=== PATIENT | female | born 1950 | race Caucasian/White ===

== ENCOUNTER 2022-12-06 10:14 | Outpatient (CLI) | payer MEDICARE, SELFPAY ==
--- NOTE | 2022-12-06 10:44 | ECG_ITS ---
Measurements Intervals [place] Rate: 60 P: 28 MS: 192 QRS: 51 QRSD: 111 T: 76 QT: 437 QTc: 440 Interpretive Statements SINUS RHYTHM MODERATE INTRAVENTRICULAR CONDUCTION DELAY [110+ ms QRS DURATION] NONSPECIFIC T-WAVE ABNORMALITY ABNORMAL ECG NO PREVIOUS ECG AVAILABLE FOR COMPARISON Electronically Signed On 12-06-2022 11:13:33 CDT by Butch Hinds M.D.
[2022-12-06 10:47] LABS: Basophils Absolute Auto 0.03 K/mm3 (0.00-0.10); Basophils Percent Auto 0.4 % (0.0-1.0); Eosinophils Absolute Auto 0.11 K/mm3 (0.02-0.50); Eosinophils Percent Auto 1.4 % (1.0-6.0); Hematocrit 44.3 % (35.0-42.0); Hemoglobin 14.3 g/dL (11.7-13.8); Immature Granulocyte Absolute 0.04 K/mm3 (0.00-0.00); Immature Granulocyte Percent A 0.5 % (0.0-0.0); Lymphocytes Absolute Auto 1.49 K/mm3 (1.10-4.50); Lymphocytes Percent Auto 18.6 % (18.0-42.0); Mean Corpuscular HGB Conc 32.3 g/dL (32.0-36.0); Mean Corpuscular Hemoglobin 30.6 pg (27.0-31.0); Mean Corpuscular Volume 94.9 fL (78.0-102.0); Mean Platelet Volume 10.9 fl (9.2-11.8); Monocytes Absolute Auto 0.35 K/mm3 (0.10-0.90); Monocytes Percent Auto 4.4 % (2.0-11.0); Neutrophils Percent Auto 74.7 % (50.0-70.0); Platelet Count Result 251 K/mm3 (150-420); Red Blood Count 4.67 M/mm3 (4.20-5.40); Red Cell Distribution Width 12.9 % (11.6-14.4)
[2022-12-06 10:48] LABS: Appearance Urine Clear (Clear); Bilirubin Urine Negative (Negative); Blood Urine Negative (Negative); Color Urine Yellow (Yellow); Glucose Urine UA Negative (Negative); Ketones Urine Negative (Negative); Leukocyte Esterase Ur Negative LEU/UL (Negative); Nitrate Urine Negative (Negative); Protein Urine Trace (Negative); Specific Grav Ur >= 1.030 (1.010-1.020); Urobilinogen Urine 0.2 mg/dL (0.2-1.0)
[2022-12-06 10:53] LABS: Add Urine Microscopic? YES; Bacteria Urine Trace /hpf; RBC Urine None seen /hpf (0-2); Squamous Epithelial Cell Urine Moderate /hpf (Few); WBC Urine None seen /hpf (0-3)
[2022-12-06 11:22] LABS: Alanine Aminotransferase 26 U/L (14-59); Albumin Level 3.7 g/dL (3.4-5.0); Alkaline Phosphatase 91 U/L (46-116); Anion Gap 9 mmol/L (8-16); Aspartate Amino Transferase 15 U/L (15-37); Bilirubin,Total 0.4 mg/dL (0.00-1.00); Blood Urea Nitrogen 22 mg/dL (7-18); Calcium 8.9 mg/dL (8.5-10.1); Carbon Dioxide 27 mmol/L (21-32); Chloride 107 mmol/L (98-108); Cholesterol 203 mg/dL (0-200); Estimated Glomerular Filt Rate > 60; Free T4 Free Thyroxine 0.88 ng/dL (0.76-1.46); Glucose 127 mg/dL (70-99); HDL Direct 56 mg/dL (40-60); Iron 46 ug/dL (50-170); LDL Cholesterol Calculated 128 mg/dL (<130); Magnesium 1.9 mg/dL (1.8-2.4); Osmolality Calculated 301 mOsm/kg (285-295); Sodium 143 mmol/L (136-145); Thyroid Stimulating Hormone 1.37 uIU/mL (0.36-3.74); Total Protein 6.8 g/dL (6.4-8.2); Triglycerides 96 mg/dL (0-150)
== END 2022-12-06 10:15 | disposition home or self-care (01) ==
LOC: CHSLAB 10:19
PROVIDERS: PCP Nurse Practitioner Family; Visit Provider Nurse Practitioner Family
DX: Z13.6 Encounter for screening for cardiovascular disorders (principal); R42 Dizziness and giddiness; D64.9 Anemia, unspecified; R53.83 Other fatigue; R94.31 Abnormal electrocardiogram [ECG] [EKG]
CPT/HCPCS: 36415; 80053; 80061; 81001; 83540; 83735; 84439; 84443; 85025; 93005

== ENCOUNTER 2022-12-06 11:08 | Emergency (ER) | payer MEDICARE, SELFPAY ==
[2022-12-06] VITALS (15 sets, daily range): BP systolic 137–159; BP diastolic 70–89; PULSE 60–70; RESP 12–20; TEMP 35.9–36.8; O2SAT 92–96
--- NOTE | 2022-12-06 11:31 | ED.GENADULT ---
HPI - General Adult General Chief complaint: Dizziness Stated complaint: dizzy, vomiting Time Seen by Provider: 12/06/22 11:17 History of Present Illness HPI narrative: Healthy 72yo h/o hypertension presents for 5 days of on and off dizziness (lightheaded and room spinning) with severe nausea and vomiting today while getting outpatient labs ordered by her primary doc. No fevers, chills, pain, diarrhea, numbness, weakness. Has had similar symptoms before but not this bad. Has been spending a lot of time out in the hot sun this week and trying to keep up with water drinking. Related Data Allergies Allergy/AdvReac Type Severity Reaction Status Date / Time No Known Allergies Allergy Verified 12/06/22 11:16 Review of Systems Review of Systems: All systems reviewed & are unremarkable except as noted in HPI and below Constitutional: Constitutional: Denies chills and Denies fever(s) ENT: Denies dysphagia, Reports vertigo and Reports dizziness Cardiovascular: Cardiovascular: Denies chest pain Respiratory: Respiratory: Denies cough and Denies dyspnea Gastrointestinal: Gastrointestinal: Denies abdominal pain, Denies diarrhea, Reports nausea and Reports vomiting PMFSH Past Medical History Medical History Adult general medical exam Breast cancer screening Ceruminosis Impacted cerumen of both ears No active medical problems Social History Social History Smoking status: Never smoker Alcohol intake: never Substance use: never Substance use type: does not use Gender identity (if verbalized by the patient): Female Spiritual care concerns: No Exam Const: General: healthy appearing and alert; No confusion Eyes: Conjunctivae: conjunctivae normal Other: fatigable nystagmus noted Neck: Other: supple Resp: Effort & Inspection: normal respiratory effort and not labored Cardio: Rate: regular rate Rhythm: regular rhythm Heart sounds: no murmurs GI: Inspection: non-distended GI Palp: Yes Soft to palpation and No Tenderness to palpation present (GI) Skin: General skin exam: normal color, no jaundice and no pallor Neuro: General: patient oriented x3, moves all extremities and no focal motor deficits Cranial nerves: Yes Nystagmus present Speech: normal speech Extrem: General: no edema Course Vital Signs Vital signs: Vital Signs Temperature 35.9 C L 12/06/22 11:08 Pulse Rate 66 12/06/22 11:08 Respiratory Rate 15 12/06/22 11:08 Blood Pressure 159/78 H 12/06/22 11:08 Pulse Oximetry 95 12/06/22 11:08 Oxygen Delivery Room Air 12/06/22 11:08 Temperature 35.9 C L 12/06/22 11:08 Pulse Rate 62 12/06/22 12:07 Respiratory Rate 16 12/06/22 12:01 Blood Pressure 139/70 12/06/22 12:01 Pulse Oximetry 95 12/06/22 12:01 Oxygen Delivery Room Air 12/06/22 11:08 Medical Decision Making MDM Narrative Medical decision making narrative: vertigo DDx BPPV, labyrinthitis, dehydration, renal failure, no evidence of cerebrovascular accident hemoconcentrated, and urine concentrated. Likely mild to moderate dehydration in setting of peripheral vertigo and vomiting during a reginoal heat wave. Needs antiemetics and oral rehydration. Vital Signs Vital Signs: Vital Signs Temperature 35.9 C L 12/06/22 11:08 Pulse Rate 66 12/06/22 11:08 Respiratory Rate 15 12/06/22 11:08 Blood Pressure 159/78 H 12/06/22 11:08 Pulse Oximetry 95 12/06/22 11:08 Oxygen Delivery Room Air 12/06/22 11:08 Temperature 35.9 C L 12/06/22 11:08 Pulse Rate 62 12/06/22 12:07 Respiratory Rate 16 12/06/22 12:01 Blood Pressure 139/70 12/06/22 12:01 Pulse Oximetry 95 12/06/22 12:01 Oxygen Delivery Room Air 12/06/22 11:08 Lab Data Lab results reviewed: Yes I reviewed the patient's lab results. Labs: hemoconcentrated, and urine concentrated. Likely
[2022-12-06] MEDS: ONDANSETRON HCL ODT 4 MG TABLET 8 MG PO (11:52)
[2022-12-06] MEDS: MECLIZINE HCL 25 MG TABLET PO (11:52)
== END 2022-12-06 12:28 | disposition home or self-care (01) ==
PROVIDERS: Emergency Provider Emergency Medicine; PCP Nurse Practitioner Family
DX: E86.0 Dehydration (principal); H81.399 Other peripheral vertigo, unspecified ear; I10 Essential (primary) hypertension
CPT/HCPCS: 99283; A9270

== ENCOUNTER 2023-04-12 04:40 | Emergency (ER) | payer MEDICARE, SELFPAY ==
[2023-04-12 04:45] VITALS: BP 128/65; PULSE 93; RESP 18; TEMP 36.2; O2SAT 97
--- NOTE | 2023-04-12 04:51 | ED.GENADULT ---
HPI - General Adult General Chief complaint: Wound/Laceration Stated complaint: horse bit to arm, infected wound Time Seen by Provider: 04/12/23 04:46 History of Present Illness HPI narrative: 72yo woman presents with horse bite to her left forearm, sustained 4 days ago, that had some redness and she wanted to be sure wasn't becoming infected. She had initially cleaned it very well with soap and then with peroxide. Yesterday it was slightly red and swollen and warm, but she soaked it in salt water and it has since started improving again. No pain. Related Data Allergies Allergy/AdvReac Type Severity Reaction Status Date / Time No Known Allergies Allergy Verified 04/12/23 04:47 Review of Systems Review of Systems: All systems reviewed & are unremarkable except as noted in HPI and below Constitutional: Constitutional: Denies fever(s) ENT: Denies dysphagia Cardiovascular: Cardiovascular: Denies chest pain Respiratory: Respiratory: Denies dyspnea Gastrointestinal: Gastrointestinal: Denies abdominal pain PMFSH Past Medical History Medical History Adult general medical exam Breast cancer screening Ceruminosis Impacted cerumen of both ears No active medical problems Social History Social History Smoking status: Never smoker Alcohol intake: never Substance use: never Substance use type: does not use Lack of Transportation: No Lack of Food: Never True Current Housing: I Have Housing Concerned About Future Housing: No Difficulty Paying Gas/Electric Bills: No Difficulty Paying for Meds: No Currently Unemployed: No Education: Bachelor's Degree Difficulty w/ Childcare or Family Care: No Living arrangements: with family Gender identity (if verbalized by the patient): Female Spiritual care concerns: No Exam Const: General: healthy appearing and no acute distress Nutritional Appearance: well nourished Eyes: Conjunctivae: conjunctivae normal Resp: Effort & Inspection: normal respiratory effort and not labored Cardio: Rate: regular rate GI: Inspection: non-distended Skin: General skin exam: normal color, no jaundice and no pallor Other: scan over left proximal forearm with no a small border of surrounding erythema; no swelling, heat, or tenderness. Neuro: General: patient oriented x3, moves all extremities and no focal motor deficits Extrem: General: no clubbing, cyanosis or edema Medical Decision Making MDM Narrative Medical decision making narrative: open wound, does not appear infected DDx normal wound healing, infected wound, cellulitis, no evidence of ulceration, envenomation, osteomyelitis, or tenosynovitis. Discharge Plan Discharge Clinical Impression: Bitten by horse, initial encounter Patient Disposition: Home, Self-Care Condition: Stable Instructions: Antibiotic Form Additional Instructions: If redness, swelling, pain, and heat worsen, start the prescribed antibiotics for the full duration Prescriptions: New amoxicillin-pot clavulanate 875-125 mg tablet 1 tablet PO BID 7 Days Qty: 14 0RF Follow-up/Referrals: Jeremy Durham DO [Primary Care Provider] - Time of Disposition: 04:52
== END 2023-04-12 05:00 | disposition home or self-care (01) ==
LOC: CHSED 04:54
PROVIDERS: Emergency Provider Emergency Medicine; PCP Family Medicine
DX: S51.852A Open bite of left forearm, initial encounter (principal); W55.11XA Bitten by horse, initial encounter
CPT/HCPCS: 99283

== ENCOUNTER 2023-07-31 22:40 | Emergency (ER) | payer MEDICARE, SELFPAY ==
[2023-07-31 22:43] VITALS: BP 138/73; PULSE 100; RESP 18; TEMP 36; O2SAT 96
--- NOTE | 2023-07-31 23:05 | ED.GENADULT ---
HPI - General Adult General Chief complaint: Extremity Problem,Nontraumatic Stated complaint: leg pain History of Present Illness HPI narrative: This is a 73-year-old female presenting to ED with leg pain. Patient is having an achy pain along the outside of her right thigh. This pain has been going on for years. Patient says she fell and landed on her knee 2 weeks ago which has made the pain worse. Patient has been able to ambulate. No significant swelling. She does have some bruising. Patient says she is concerned she may have a blood clot because her [id number] had one once. Related Data Home Medications Medication Instructions Recorded Confirmed No Home Medications 07/31/23 07/31/23 Allergies Allergy/AdvReac Type Severity Reaction Status Date / Time No Known Allergies Allergy Verified 07/31/23 23:04 [facility] Past Medical History Medical History Adult general medical exam Breast cancer screening Ceruminosis Impacted cerumen of both ears No active medical problems Social History Social History Smoking status: Never smoker Alcohol intake: never Substance use: never Substance use type: does not use Lack of Transportation: No Lack of Food: Never True Current Housing: I Have Housing Concerned About Future Housing: No Difficulty Paying Gas/Electric Bills: No Difficulty Paying for Meds: No Currently Unemployed: No Education: Bachelor's Degree Difficulty w/ Childcare or Family Care: No Living arrangements: with family Gender identity (if verbalized by the patient): Female Spiritual care concerns: No Exam Narrative: APPEARANCE: No apparent distress. Head: atraumatic. EYES: EOMI, NOSE: Atraumatic NECK: Trachea midline RESPIRATORY: No increased rate of breathing CARDIOVASCULAR: RRR, no peripheral edema ABDOMINAL: Non-distended MUSCULOSKELETAl: focal exam of the right lower extremity revealed no swelling. Some mild tenderness along the outside of her right thigh. no overlying skin changes. Minor bruising around the knee from previous fall. Neurovascularly intact. NEURO: Alert. Moving 4/4 extremities SKIN:: Warm, dry. Normal color PSYCHIATRIC: Normal affect Course Vital Signs Vital signs: Vital Signs Temperature 96.8 F L 07/31/23 22:43 Pulse Rate 100 07/31/23 22:43 Respiratory Rate 18 07/31/23 22:43 Blood Pressure 138/73 07/31/23 22:43 Pulse Oximetry 96 07/31/23 22:43 Oxygen Delivery Room Air 07/31/23 22:43 Temperature 96.8 F L 07/31/23 22:43 Pulse Rate 100 07/31/23 22:43 Respiratory Rate 18 07/31/23 22:43 Blood Pressure 138/73 07/31/23 22:43 Pulse Oximetry 96 07/31/23 22:43 Oxygen Delivery Room Air 07/31/23 22:43 Medical Decision Making MDM Narrative Medical decision making narrative: -Course: 73-year-old female presenting with pain along the outside of her right thigh intermittently for 1 year but worse after after a fall 2 weeks ago. Patient was told by family member she might have a blood clot so she came to the ED to be evaluated. Patient has no evidence of DVT on exam, no risk factors for DVT. Well's score -2. far more likely to be muscle strain vs sciatica I did offer x-rays to evaluate her knee pelvis but the patient declined. she says she has been ambulating for 2 weeks without difficulty. patient can follow-up with her primary care physician. 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 ?Unlikely? according to Wells? DVT studies. INPUTS
[2023-07-31] MEDS: ACETAMINOPHEN 500 MG TABLET 1000 MG PO (23:13)
[2023-07-31] MEDS: IBUPROFEN 400 MG TABLET 800 MG PO (23:14)
== END 2023-07-31 23:27 | disposition home or self-care (01) ==
PROVIDERS: Emergency Provider Emergency Medicine; PCP Nurse Practitioner Family
DX: M79.651 Pain in right thigh (principal); W18.30XA Fall on same level, unspecified, initial encounter
CPT/HCPCS: 99282; A9270

== ENCOUNTER 2023-08-26 07:38 | Outpatient (CLI) | payer MEDICARE, SELFPAY ==
--- NOTE | ~2023-08-26 | XR_ITS ---
NAME: Juliet Hassan DATE OF : 52 EXAMINATION: XR femur RT min 2V DATE: 08/26/2023 at 7:57 AM INDICATION: Right thigh pain. TECHNIQUE: 2 views of right femur on 4 radiographs were obtained. COMPARISON: None. FINDINGS: Bone alignment is normal. No fracture. There is mild right knee osteoarthritis. There is a small right knee joint effusion. There is prepatellar soft tissue swelling. Osteitis pubis is noted. IMPRESSION: 1. Mild right knee osteoarthritis. 2. Small right knee joint effusion. Reviewed, dictated and finalized at location A.
--- NOTE | ~2023-08-26 | XR_ITS ---
NAME: Juliet Hassan DATE OF : 52 EXAMINATION: XR knee RT 3V DATE: 08/26/23 7:58 AM INDICATION: Right knee pain. TECHNIQUE: 3 views of right knee were obtained. COMPARISON: None. FINDINGS: Bone alignment is normal. No fracture. There is mild osteoarthritis of medial and patellofe moral compartments characterized by tiny osteophytes. There is a small knee joint effusion. There is anterior soft tissue swelling. IMPRESSION: 1. Mild right knee osteoarthritis. 2. Small knee joint effusion. Reviewed, dictated and finalized at location A.
== END 2023-08-26 07:39 | disposition home or self-care (01) ==
LOC: CHSIMG 07:40
PROVIDERS: PCP Family Medicine; Visit Provider Nurse Practitioner Family
DX: M25.561 Pain in right knee (principal); M79.604 Pain in right leg; M17.11 Unilateral primary osteoarthritis, right knee; M25.461 Effusion, right knee
CPT/HCPCS: 73552; 73562

== ENCOUNTER 2023-11-24 22:38 | Emergency (ER) | payer MEDICARE, SELFPAY ==
[2023-11-24 22:39] VITALS: BP 133/90; PULSE 99; RESP 18; TEMP 36.4; O2SAT 94
--- NOTE | 2023-11-24 22:43 | ED.WOUNDLAC ---
HPI - Wound/Laceration General Stated Complaint: head inury Time Seen by Provider: 11/24/23 22:41 Source: patient Mode of arrival: ambulatory Limitations: no limitations History of Present Illness HPI narrative: This is a 73-year-old female with no significant past medical history presents with a frontal scalp laceration after she was outdoors this evening and in the dark his trimming tree limbs and 1 fell and struck her frontal scalp causing a laceration to her frontal scalp area. No loss of consciousness currently no headaches no nausea vomiting no blurry vision no other injuries. Onset (ago): hour(s) Location: scalp Place: outdoors Patient tetanus UTD: Yes Context: accidental Related Data Allergies Allergy/AdvReac Type Severity Reaction Status Date / Time No Known Allergies Allergy Verified 11/24/23 22:50 Review of Systems Review of Systems: All systems reviewed & are unremarkable except as noted in HPI and below PMFSH Past Medical History Medical History Adult general medical exam Breast cancer screening Ceruminosis Impacted cerumen of both ears No active medical problems Social History Social History Smoking status: Never smoker Alcohol intake: never Substance use: never Substance use type: does not use Lack of Transportation: No Lack of Food: Never True Current Housing: I Have Housing Concerned About Future Housing: No Difficulty Paying Gas/Electric Bills: No Difficulty Paying for Meds: No Currently Unemployed: No Education: Bachelor's Degree Difficulty w/ Childcare or Family Care: No Living arrangements: with family Gender identity (if verbalized by the patient): Female Spiritual care concerns: No Exam Const: General: healthy appearing, no acute distress and alert Nutritional Appearance: well nourished Orientation/consciousness: patient oriented x3 Limitations: no limitations HENMT: Head: normal to inspection Eyes: Conjunctivae: conjunctivae normal Pupils: Equal, round and reactive pupils present EOM: EOMs intact bilaterally Neck: Neck: normal visual inspection, no lymphadenopathy and no meningeal signs Chest: Chest palpation & inspection: normal inspection of the chest Resp: Effort & Inspection: normal respiratory effort Auscultation: clear to auscultation bilaterally Cardio: Rate: regular rate Rhythm: regular rhythm Skin: Wounds: wounds noted Other: 3Cm mildly gaping laceration from scalp Neuro: General: patient oriented x3 and moves all extremities Extrem: General: normal to inspection Course Course Emergency Course: 5 bryn placed in frontal scalp area patient tolerated procedure well there was no blood loss. Vital Signs Vital signs: Vital Signs Temperature 36.4 C L 11/24/23 22:39 Pulse Rate 99 11/24/23 22:39 Respiratory Rate 18 11/24/23 22:39 Blood Pressure 133/90 11/24/23 22:39 Pulse Oximetry 94 11/24/23 22:39 Oxygen Delivery Room Air 11/24/23 22:39 Temperature 36.4 C L 11/24/23 22:39 Pulse Rate 99 11/24/23 22:39 Respiratory Rate 18 11/24/23 22:39 Blood Pressure 133/90 11/24/23 22:39 Pulse Oximetry 94 11/24/23 22:39 Oxygen Delivery Room Air 11/24/23 22:39 Procedures Laceration Laceration 1: Date: 11/24/23 Time: 22:48 Site: scalp Size (cm): 3 Description: linear Depth: simple, single layer Pre-repair: wound explored and irrigated ====== Skin Level ====== Skin layer closed with: bryn ( Five bryn placed) Number of sutures: 5 ====== Subcutaneous Layer ====== ====== Muscle Layer ====== ====== Tendon Layer ====== Critical Care Time Critical Care Time Critical Care Time: No Discharge Plan Discharge Clinical Impression: Laceration Patient Disposition: Home, Self-
== END 2023-11-24 23:05 | disposition home or self-care (01) ==
PROVIDERS: Emergency Provider Emergency Medicine; PCP Nurse Practitioner Family
DX: S01.01XA Laceration without foreign body of scalp, initial encounter (principal); W20.8XXA Other cause of strike by thrown, projected or falling object, initial encounter
CPT/HCPCS: 12002; 99282

== ENCOUNTER 2024-12-13 11:40 | Emergency (ER) | payer MEDICARE, SELFPAY ==
[2024-12-13 11:40] VITALS: BP 144/119; PULSE 68; RESP 18; TEMP 36.2; O2SAT 89
--- OUTSIDE RECORDS SUMMARY | 2024-12-13 11:46 | XMS_ITS | Clinical Summary ---
Author Organization [facility] Address [address] [place] [id number] Care Team Providers Care Group Practice Pediatrician Name Role Phone Unavailable Primary Care Provider Unavailabl e Social History Tobacco Use Types Packs/Day Years Used Date Smoking Tobacco: Never Assessed Comments Unknown Sex and Gender Information Value Date Recorded Sex Assigned at Not on file Legal Sex Female 7:58 PM CDT Gender Identity Not on file Sexual Orientation Not on file Plan of Treatment Health Maintenance Due Date Last Done Comments Colorectal Cancer Screening Colonoscopy (10 Years) 1951 Hepatitis C 1969 DTaP, Tdap and Td Vaccines ( 1 - Tdap) 1970 Mammogram Screening 1991 Pneumococcal Vaccine: 50+ Ye ars (1 of 1 - PCV) 2001 Zoster Vaccines (1 of 2) 2001 Dexa Scan (General) 2016 COVID-19 Vaccine (2023-2 5 season) 2024 RSV Immunization or 60+ Years (1 - 1-dose 75+ series) 2026 Meningococcal B Vaccine Aged Out No l onger eligible based on patient's age to complete this topic Meningococcal Vaccine Aged Out No israel yessica eligible based on patient's age to complete this topic RSV Immunizations Under 20 Months Aged Out No longer eligible based on patient's age to complete this topic
--- NOTE | 2024-12-13 11:58 | ED.BACK ---
HPI - Back Pain/Injury General Chief Complaint: Back Pain/Injury Stated Complaint: lower back pain Time Seen by Provider: 12/13/24 11:55 Source: patient Mode of arrival: ambulatory Limitations: no limitations History of Present Illness HPI Narrative: this is a 74-year-old female with no significant past medical history presents with 4 day history of low back pain with no radiation of her pain no known injuries no dysuria or hematuria no neurological deficits no fever chills no abdominal pain no shortness of breath or chest pain. MD elicited complaint: back pain Pertinent past history: prior back pain Onset (ago): day(s) Timing: constant Severity: moderate Pain scale (0-10): 6 Quality: aching Location: lumbar spine Related Data Allergies Allergy/AdvReac Type Severity Reaction Status Date / Time No Known Allergies Allergy Verified 12/13/24 11:45 Review of Systems Review of Systems: All systems reviewed & are unremarkable except as noted in HPI and below PMFSH Past Medical History Medical History Adult general medical exam Breast cancer screening Impacted cerumen of both ears Ceruminosis No active medical problems Social History Social History Smoking status: Never smoker Alcohol intake: never Substance use: never Substance use type: does not use Lack of Transportation: No Lack of Food: Never True Current Housing: I Have Housing Concerned About Future Housing: No Difficulty Paying Gas/Electric Bills: No Difficulty Paying for Meds: No Currently Unemployed: No Education: Bachelor's Degree Difficulty w/ Childcare or Family Care: No Living arrangements: with family Gender identity (if verbalized by the patient): Female Spiritual care concerns: No Exam Const: General: healthy appearing and no acute distress Nutritional Appearance: well nourished Orientation/consciousness: patient oriented x3 Limitations: no limitations Neck: Neck: normal visual inspection, no lymphadenopathy and no meningeal signs Chest: Chest palpation & inspection: normal inspection of the chest Resp: Effort & Inspection: normal respiratory effort Auscultation: clear to auscultation bilaterally Cardio: Rate: regular rate Rhythm: regular rhythm GI: GI Palp: Yes Soft to palpation Auscultation: normal bowel sounds : General: Yes bladder normal to palpation Back/Spine/Pelvis: Back: no CVA tenderness Skin: General skin exam: normal color Rashes: no rashes Neuro: General: patient oriented x3, moves all extremities, no meningeal signs and no focal motor deficits Extrem: Other: Low back pain left L4 paravertebral tenderness with palpation with a negative straight leg raising test Course Course Emergency Course: patient with low back pain with no known injuries received a 30mg IM Toradol and will send medication to patient's local pharmacy and asked to follow-up with her primary care physician. Vital Signs Vital signs: Vital Signs Temperature 36.2 C L 12/13/24 11:40 Pulse Rate 68 12/13/24 11:40 Respiratory Rate 18 12/13/24 11:40 Blood Pressure 144/119 H 12/13/24 11:40 Pulse Oximetry 89 L 12/13/24 11:40 Oxygen Delivery Room Air 12/13/24 11:40 Temperature 36.2 C L 12/13/24 11:40 Pulse Rate 68 12/13/24 11:40 Respiratory Rate 18 12/13/24 11:40 Blood Pressure 144/119 H 12/13/24 11:40 Pulse Oximetry 89 L 12/13/24 11:40 Oxygen Delivery Room Air 12/13/24 11:40 Critical Care Time Critical Care Time Critical Care Time: No Discharge Plan Discharge Clinical Impression: Low back pain Qualifiers: Chronicity: acute Back pain laterality: left Sciatica presence: without sciatica Qualified Code(s): M54.50 - Low back pain, unspecified Patient Disposition: Home Condition: Stable Instructions: Antibiotic Form, Acute Low Back Pain (ED) Additional Instructions: advised patient to take medication as prescribed and to follow with primary within the next 3 to 5 days further evaluation treatment. Patient Language: Nepali Prescriptions: New tramadol 50 mg tablet 50 mg PO Q6H PRN (Reason: pain) Qty: 20 0RF No Action diclofenac sodium 50 mg tablet,delayed release (DR/EC) 50 mg PO TID PRN (Reason: pain) Qty: 45 0RF Rx Instructions: Be sure to take with food. Follow-up/Referrals: Vy Quintana NP [Primary Care Provider] - Time of Disposition: 12:03
--- OUTSIDE RECORDS SUMMARY | 2024-12-13 12:06 | XMS_ITS | Clinical Summary ---
Author Organization [facility] Address [address] [place] [id number] Care Team Providers Care Aerodynamic Consultant Name Role Phone Unavailable Primary Care Provider [...]
[2024-12-13] MEDS: KETOROLAC 30 MG/ML VIAL (*BKC) IM (12:19)
== END 2024-12-13 12:30 | disposition home or self-care (01) ==
LOC: CHSED 12:06
PROVIDERS: Emergency Provider Emergency Medicine; PCP Nurse Practitioner Family
DX: M54.50 Low back pain, unspecified (principal)
CPT/HCPCS: 96372; 99283; J1885

== ENCOUNTER 2024-12-20 11:34 | Outpatient (CLI) | payer MEDICARE, SELFPAY ==
--- NOTE | ~2024-12-20 | XR_ITS ---
3 VIEWS LUMBAR SPINE Ordering provider: Vy Quintana NP History: . M54.50 - Low back pain, unspecified . Comparison: None. FINDINGS: VERTEBRAL BODIES:Levoscoliosis. No visible fracture or subluxation. Degenerative changes of the spin e. Bilateral sacroiliacs. DISK SPACES: Narrowing of the disc L3-L4, L4-L5 and L5-S1. Multilevel facet joint disease. SOFT TISSUES: Atherosclerotic changes of the aorta. IMPRESSION: No acute osseous abnormality lumbar spine. Multilevel degenerative disc disease. Reviewed, dictated and finalized at location A.
== END 2024-12-20 11:35 | disposition home or self-care (01) ==
LOC: CHSIMG 11:35
PROVIDERS: PCP Nurse Practitioner Family; Visit Provider Nurse Practitioner Family
DX: M54.50 Low back pain, unspecified (principal); M51.369 Other intervertebral disc degeneration, lumbar region without mention of lumbar back pain or lower extremity pain
CPT/HCPCS: 72110

== ENCOUNTER 2025-01-02 15:28 | Outpatient (RCR) | payer MEDICARE, SELFPAY ==
--- NOTE | 2025-01-02 16:18 | OPREHPOC ---
Outpatient Therapy Plan of Care This is a Multidisciplinary Plan of Care that may contain components documented by all disciplines (PT, OT, and ST.) PT Problem 1 PT Problem #1 Knowledge Deficit PT Goal 1 Goal / Goal Update Independent and compliant with HEP. Target Visit 2 PT Problem 2 PT Problem #2 Pain PT Goal 1 Goal / Goal Update Pt to report no low back pain in the last week. Target Visit 6 PT Problem 3 PT Problem #3 Impaired Strength PT Goal 1 Goal / Goal Update Pt to improve bilat hip flexion strength to 5/5. Pt to improve upper and lower abdominal strength to 4+/5. Target Visit 6
--- NOTE | 2025-01-02 16:18 | PTOPEVAL1 ---
Assessment and note entered by Sharmaine Ruby, PT Evaluation Information Assessment Status Evaluation ICD-10 Condition Codes (PT) Pain in low back M54.50 Onset 12/11/24 Subjective Information Pt reports her back pain started a few weeks ago and prevented her from sleeping. Her doctor gave her pain meds and she initially took those but hasn't needed them for a while. States the doctor originally thought it was muscle spasms or arthritis. She states she's been exercising with chair yoga and doing aerobics which have helped, and her back pain has only been occasional in the last week. Reported Pain Level Pain Score 0: Self Report Assessment PT Clinical Summary Mrs. Hassan is a 74 yo female presenting to skilled PT evaluation for low back pain. Currently her pain is mild and intermittent and has improved with independent exercise including chair yoga and aerobics. She demonstrates mild hip flexor weakness bilaterally as well as moderate upper and lower abdominal mm weakness and associated postural deficits. She will benefit from skilled PT intervention to address these deficits to return to normal function without pain . Plan of Care Interventions Electrical Stimulation,Gait Training,Hot Pack/Cold Pack,Manual Therapy,Neuro Re-education,Patient/ Caregiver Education,Therapeutic Activities, Therapeutic Exercise,Self-Care/Home Management PT Services Indicated Yes Treatment Frequency and 1x/week for 6 visits Duration These treatments will address the objective and functional deficits as defined above. The patient will be advanced safely and appropriately in order for the patient to progress towards his/her prior level of function. Additional exercises will be introduced and as well as a comprehensive home exercise program upon discharge, if needed, ?to ensure carryover of functional gains achieved in the clinic. This treatment plan has been reviewed and agreement upon by the patient.
--- NOTE | 2025-01-24 07:12 | PCPTNOTE ---
Cancelled session. Reports she cannot make it in today/
--- NOTE | 2025-03-06 10:32 | PTOPDC ---
Assessment and note entered by Sharmaine Ruby, PT Evaluation Information Assessment Status Discharge - Pt Not Present ICD-10 Condition Codes (PT) Pain in low back M54.50 Onset 12/11/24 Subjective Information See below. Assessment PT Clinical Summary Mrs. Hassan was seen in clinic for PT evaluation and subsequent treatment session for lower back pain. She has not attended PT since 01/10/2025, and after contact the pt via phone she verbalized feeling better and would like to be discharged. Plan of Care PT Services Indicated No
== END 2025-01-10 10:49 | disposition home or self-care (01) ==
LOC: CHSPT 15:28
PROVIDERS: PCP Nurse Practitioner Family; Visit Provider Nurse Practitioner Family
DX: M54.50 Low back pain, unspecified (principal)
CPT/HCPCS: 97110; 97161